=== PATIENT | male | born 2000 | race African-American/Black ===

== ENCOUNTER 2023-10-12 18:42 | Emergency (ER) | payer OTHER ==
[~2023-10-12] VITALS: Ht 185.4 cm; Wt 81.8 kg
[2023-10-12 19:23] VITALS: BP 119/83; PULSE 16; RESP 16; O2SAT 98
[2023-10-13] MEDS ORDERED: IBUP1TAB5 PO (13:17)
[2023-10-13] MEDS ORDERED: CIPR-173 PO (13:17)
== END 2023-10-12 21:54 | disposition left against medical advice (07) ==
LOC: ER 18:42
DX: S61.216A Laceration without foreign body of right little finger without damage to nail, initial encounter (principal); Z53.21 Procedure and treatment not carried out due to patient leaving prior to being seen by health care provider; W18.39XA Other fall on same level, initial encounter; Y93.89 Activity, other specified; Y92.89 Other specified places as the place of occurrence of the external cause; Y99.8 Other external cause status
CPT/HCPCS: 73140

== ENCOUNTER 2023-10-13 09:20 | Emergency (ER) | payer OTHER ==
[~2023-10-13] VITALS: Ht 185.4 cm; Wt 87.2 kg
[2023-10-13] MEDS ORDERED: TETANUS-DIPTH-ACEL PERTUSSIS 0.5ML SYR Tdap IM ONE (13:15)
[2023-10-13] MEDS ORDERED: NEOMYCIN-BACITRACIN-POLYM UNITDOSE PKG TOP OINT TOP ONE (13:15)
[2023-10-13] MEDS ORDERED: LIDOCAINE 1% (LOCAL ANESTH.) PF 5ml SDV ID ONE (13:15)
[2023-10-13] MEDS ORDERED: IBUP1TAB5 PO (13:17)
[2023-10-13] MEDS ORDERED: CIPR-173 PO (13:17)
[2023-10-13 13:35] VITALS: BP 135/74; PULSE 67; RESP 18; O2SAT 100
[2023-10-13] MEDS: LIDOCAINE W/ EPINEPHRINE 2% INJ 20ML VIAL ONE (13:36)
== END 2023-10-13 14:24 | disposition home or self-care (01) ==
LOC: ER 09:20
DX: S61.217A Laceration without foreign body of left little finger without damage to nail, initial encounter (principal); X58.XXXA Exposure to other specified factors, initial encounter; Y93.89 Activity, other specified; Y92.69 Other specified industrial and construction area as the place of occurrence of the external cause; Y99.8 Other external cause status
CPT/HCPCS: 12002; 90471; 90715